=== PATIENT | female | born 1950 | race Caucasian/White ===

== ENCOUNTER 2017-08-07 18:51 | Emergency (ER) | payer BC ==
[2017-08-07 19:33] VITALS: BP 163/67; PULSE 75; O2SAT 98
[2017-08-07] MEDS ORDERED: Zofran 4 MG/2 ML VIAL IV ONE (20:15)
[2017-08-07] MEDS ORDERED: TORAdol 30 mg Injection IV ONE (20:15)
[2017-08-07] MEDS ORDERED: Pepcid 20 MG VIAL IV ONE ×2 (20:15→20:44)
[2017-08-07] MEDS ORDERED: Sodium Chloride 0.9% 1000 ML 1,000 ML IV SCH (20:15)
[2017-08-07 20:20] LABS: ALBUMIN 3.8 g/dL (3.5-5.0); ALKALINE PHOSPHATASE 117 U/L (38-126); ANION GAP 13.8 MEQ/L (5-15); BLOOD UREA NITROGEN 11 mg/dL (7-17); CHLORIDE 105 mmol/L (98-107); Calcium 9.5 mg/dL (8.4-10.2); Carbon Dioxide 27 mmol/L (22-30); Creatinine 1 0.54 mg/dL (0.52-1.04); Glucose 116 mg/dL (74-106); LIPASE 46 U/L (23-300); SGOT/AST 33 U/L (14-36); SGPT/ALT 42 U/L (0-35); SODIUM 142 mmol/L (137-145)
[2017-08-07 20:36] LABS: BASOPHIL % 0.3 % (0.0-0.4); Basophil (Absolute #) 0.04 (0-0.4); Eosinophil % 2.1 % (0.00-5.0); Eosinophil (Absolute #) 0.31 (0-0.5); Granulocyte Absolute (ANC) 10.19 (1.4-6.9); Granulocytes % 68.4 % (36.0-66.0); Hematocrit 37.9 % (35-47); Hemoglobin 12.6 gm/dl (12.0-16.0); Lymphocyte (Absolute #) 3.19 (1.0-4.6); Lymphocytes % 21.5 % (24.0-44.0); Mean Cell Volume 85.2 fl (78-100); Mean Corpuscular Hemoglobin 28.3 pg (26-32); Mean Corpuscular Hgb Concent. 33.2 g/dl (32-36); Mean Platelet Volume 9.7 fl (6-9.5); Monocyte (Absolute #) 1.14 (0.0-1.3); Monocytes % 7.7 % (0.0-12.0); Platelet Count 293 K/mm3 (150-450); Red Blood Count 4.45 M/mm3 (4.1-5.4); Red Cell Distribution Width 14.1 % (11.5-14.0); White Blood Count 14.9 K/mm3 (4.0-10.5)
--- NOTE | 2017-08-07 20:39 | ERPHSYRPT ---
- History of Present Illness Time Seen by Provider: 08/07/17 20:12 Historian: patient Exam Limitations: no limitations Patient Subjective Stated Complaint: pt arrives to ER with c/o LLQ abdominal pain began yesterday and has progressively become worse. Pt states pain shoots into left lower back. Also c/o nausea and belching. Pt denies dysuria, hematuria , vaginal d/c, diarrhea, constipation or any other sx. Hurts to walk and is tender to palpation. Triage Nursing Assessment: see above Physician History: C/o LLQ abdominal pain, nausea since yesterday, denies vomiting, diarrhea, bloody or black stool, no fever, chuills or urinary complaints. Timing/Duration: yesterday Activities at Onset: none Quality: sharpness Abdominal Pain Onset Location: LLQ Pain Radiation: no radiation Severity of Pain-Max: moderate Severity of Pain-Current: moderate Modifying Factors: Improves With: nothing Associated Symptoms: nausea Previous symptoms: no prior history Allergies/Adverse Reactions: No Known Drug Allergies Allergy (Verified 08/07/17 19:33) Home Medications: Dulaglutide [Trulicity] 0.75 mg SQ WEEKLY 01/20/16 [History] Metformin HCl 500 mg [Glucophage 500 MG] 500 mg PO BID 01/20/16 [History] Multivitamin [Daily Multivitamin] 1 ea PO DAILY 01/20/16 [History] Pravastatin Sodium 40 mg PO DAILY 01/20/16 [History] Ergocalciferol (Vitamin D2) [Vitamin D2] 50,000 units PO WEEKLY 08/07/17 [ History] - Review of Systems Constitutional: No Symptoms Abdominal/Gastrointestinal: Abdominal Pain, Nausea All Other Systems: Reviewed and Negative - Past Medical History Pertinent Past Medical History: Yes Neurological History: Peripheral Neuropathy ENT History: No Pertinent History Cardiac History: High Cholesterol Respiratory History: No Pertinent History Endocrine Medical History: Diabetes Type II Musculoskeletal History: No Pertinent History GI Medical History: No Pertinent History History: No Pertinent History Psycho-Social History: No Pertinent History Female Reproductive Disorders: No Pertinent History - Past Surgical History Past Surgical History: Yes Neuro Surgical History: No Pertinent History Cardiac: No Pertinent History Respiratory: No Pertinent History Gastrointestinal: Hernia Repair Genitourinary: No Pertinent History Musculoskeletal: Orthopedic Surgery Female Surgical History: Hysterectomy, Section Other Surgical History: L arm plate and screws - Social History Smoking Status: Never smoker Exposure to second hand smoke: No Drug Use: none Patient Lives Alone: No - Female History Hx Now: No - Nursing Vital Signs Nursing Vital Signs: Initial Vital Signs Temperature 98.4 F 08/07/17 19:24 Pulse Rate 75 08/07/17 19:24 Respiratory Rate 20 08/07/17 19:24 Blood Pressure 163/67 08/07/17 19:24 O2 Sat by Pulse Oximetry 98 08/07/17 19:24 Pain Scale Pain Intensity 8 - Physical Exam General Appearance: no apparent distress Eye Exam: eyes nml inspection Ears, Nose, Throat Exam: normal ENT inspection Neck Exam: normal inspection, non-tender Respiratory Exam: normal breath sounds, lungs clear, airway intact, No chest tenderness Cardiovascular Exam: regular rate/rhythm, normal heart sounds, normal peripheral pulses, No murmur Gastrointestinal/Abdomen Exam: soft, normal bowel sounds, tenderness (LLQ, moderate), No distention, No mass, No guarding, No pulsatile mass, No rebound Pelvic Exam: not done Back Exam: normal inspection, No CVA tenderness Extremity Exam: normal inspection Neurologic Exam: alert, oriented x 3, normal mood/affect Skin Exam: normal color, warm, dry, No rash Lymphatic Exam: No adenopathy SpO2 Interpretation: normal SpO2: 98 Oxygen Delivery: Room Air - Course Nursing assessment & vital signs reviewed: Yes - CT Exams Abdomen/Pelvis CT Interpretation: Tele-radiologist Report, Other (minimal diverticulitis) Ordered Tests: Active Orders 24 hr Category Date Time Status Clean Catch Urine Specimen STAT Care 08/07/17 19:57 Active IV Insertion STAT Care 08/07/17 19:57 Active IV Insertion STAT Care 08/07/17 20:15 Active ABDOMEN AND PELVIS W CONTRAST [CT] Stat Exams 08/07/17 20:16 Taken CBC W DIFF Stat Lab 08/07/17 19:57 Completed CMP Stat Lab 08/07/17 19:57 Completed CULTURE,URINE Stat Lab 08/07/17 21:30 Received LIPASE Stat Lab 08/07/17 19:57 Completed UA W/ MICROSCOPIC Stat Lab 08/07/17 21:30 Completed Medication Summary Generic Name Dose Route Start Last Admin Trade Name Freq PRN Reason Stop Dose Admin Sodium Chloride 1,000 mls @ 100 mls/hr 08/07/17 20:15 08/07/17 20:53 Sodium Chloride 0.9% 1000 Ml IV 09/06/17 20:14 100 mls/hr .Q10H FRANCESCO Administration Discontinued Medications Generic Name Dose Route Start Last Admin Trade Name Raymond PRN Reason Stop Dose Admin Famotidine 20 mg 08/07/17 20:15 08/07/17 20:52 Pepcid 20 Mg Vial IV 08/07/17 20:16 20 mg STAT ONE Administration Famotidine Confirm 08/07/17 20:44 Pepcid 20 Mg Vial Administered 08/07/17 20:45 Dose 20 mg IV .STK-MED ONE Ketorolac Tromethamine 30 mg 08/07/17 20:15 08/07/17 20:55 Toradol 30 Mg Injection IV 08/07/17 20:16 30 mg STAT ONE Administration Ketorolac Tromethamine Confirm 08/07/17 20:44 Toradol 30 Mg Injection Administered 08/07/17 20:45 Dose 30 mg .ROUTE .STK-MED ONE Ondansetron HCl 4 mg 08/07/17 20:15 08/07/17 20:55 Zofran 4 Mg/2 Ml Vial IV 08/07/17 20:16 4 mg STAT ONE Administration Ondansetron HCl Confirm 08/07/17 20:44 Zofran 4 Mg/2 Ml Vial Administered 08/07/17 20:45 Dose 4 mg .ROUTE .STK-MED ONE Lab/Rad Data: Laboratory Result Diagrams 08/07/17 19:57 08/07/17 19:57 Laboratory Results 08/07/17 08/07/17 08/07/17 Range/Units 21:30 19:57 19:57 WBC 14.9 H (4.0-10.5) K/mm3 RBC 4.45 (4.1-5.4) M/mm3 Hgb 12.6 (12.0-16.0) gm/dl Hct 37.9 (35-47) % MCV 85.2 (78-100) fl MCH 28.3 (26-32) pg MCHC 33.2 (32-36) g/dl RDW 14.1 H (11.5-14.0) % Plt Count 293 (150-450) K/mm3 MPV 9.7 H (6-9.5) fl Gran % 68.4 H (36.0-66.0) % Eos # (Auto) 0.31 (0-0.5) Absolute Lymphs (auto) 3.19 (1.0-4.6) Absolute Monos (auto) 1.14 (0.0-1.3) Lymphocytes % 21.5 L (24.0-44.0) % Monocytes % 7.7 (0.0-12.0) % Eosinophils % 2.1 (0.00-5.0) % Basophils % 0.3 (0.0-0.4) % Absolute Granulocytes 10.19 H (1.4-6.9) Basophils # 0.04 (0-0.4) Sodium 142 (137-145) mmol/L Potassium 4.0 (3.5-5.1) mmol/L Chloride 105 (98-107) mmol/L Carbon Dioxide 27 (22-30) mmol/L Anion Gap 13.8 (5-15) MEQ/L BUN 11 (7-17) mg/dL Creatinine 0.54 (0.52-1.04) mg/dL Estimated GFR > 60.0 ML/MIN Glucose 116 H (74-106) mg/dL Calcium 9.5 (8.4-10.2) mg/dL Total Bilirubin 0.40 (0.2-1.3) mg/dL AST 33 (14-36) U/L ALT 42 H (0-35) U/L Alkaline Phosphatase 117 (38-126) U/L Serum Total Protein 7.0 (6.3-8.2) g/dL Albumin 3.8 (3.5-5.0) g/dL Lipase 46 (23-300) U/L Ur Collection Type CCMS Urine Color YELLOW (YELLOW) Urine Appearance CLEAR (CLEAR) Urine pH 6.0 (5-6) Ur Specific [place] 1.015 (1.005-1.025) Urine Protein NEGATIVE (Negative) Urine Ketones NEGATIVE (NEGATIVE) Urine Blood NEGATIVE (0-5) Kevin/ul Urine Nitrite NEGATIVE (NEGATIVE) Urine Bilirubin NEGATIVE (NEGATIVE) Urine Urobilinogen NORMAL (0-1) mg/dL Ur Leukocyte Esterase 1+ (NEGATIVE) Urine Microscopic RBC 0-2 (0-2) /HPF Urine Microscopic WBC 10-15 (0-5) /HPF Ur Epithelial Cells FEW (FEW) /HPF Urine Bacteria RARE (NEGATIVE) /HPF Urine Mucus SLIGHT (NEGATIVE) /HPF Urine Culture Reflexed YES (NO) Urine Glucose 50 (NEGATIVE) mg/dL Specimen Received [id number] - Progress Progress: improved Progress Note: 08/07/17 23:52 Pt has been stable, afebrile, no severe pain or distress. I discussed our results with her, and instructed to rest x 2-3 days, continue liquid diet, follow up with her PCP in 2-3 days, return if severe pain, vomiting, fever> 102 F! Counseled pt/family regarding: lab results, diagnosis, need for follow-up, rad results - Departure Time of Disposition: 23:52 Departure Disposition: Home Clinical Impression: Diverticulitis large intestine Qualifiers: Diverticulitis bleeding: without bleeding Diverticulitis complication: without perforation or abscess Qualified Code(s): K57.32 - Diverticulitis of large intestine without perforation or abscess without bleeding Condition: Stable Critical Care Time: No Referrals: CHERIE HUMPHRIES MD [Primary Care Provider] - Instructions: Diverticulitis (DC) Additional Instructions: Rest x 2-3 days, continue liquid diet, follow up with your physician in 2-3 days , return if severe pain, vomiting, fever> 102 F!
[2017-08-07] MEDS ORDERED: Sodium Chloride 0.9% 1000 ML 1,000 ML ONE (20:44)
[2017-08-07] MEDS ORDERED: TORAdol 30 mg Injection ONE (20:44)
[2017-08-07] MEDS ORDERED: Zofran 4 MG/2 ML VIAL ONE (20:44)
[2017-08-07 21:52] LABS: Appearance CLEAR (CLEAR); Bacteria RARE /HPF (NEGATIVE); Bilirubin NEGATIVE (NEGATIVE); Blood NEGATIVE Ery/ul (0-5); Epithelial Cells FEW /HPF (FEW); Glucose 50 mg/dL (NEGATIVE); Ketones NEGATIVE (NEGATIVE); Leukocyte Esterase 1+ (NEGATIVE); Mucus SLIGHT /HPF (NEGATIVE); Nitrite NEGATIVE (NEGATIVE); Protein,Urine Dip NEGATIVE (Negative); RBC 0-2 /HPF (0-2); Specific Gravity 1.015 (1.005-1.025); Urobilinogen NORMAL mg/dL (0-1)
[2017-08-07] MEDS ORDERED: Flagyl 500 MG PO ONE (23:51)
[2017-08-07] MEDS ORDERED: Levofloxacin 250MG Tablet PO ONE (23:51)
[2017-08-07] MEDS ORDERED: Levofloxacin 250MG Tablet ONE (23:58)
[2017-08-07] MEDS ORDERED: Flagyl 500 MG ONE (23:58)
--- NOTE | 2017-08-08 08:37 | XRAY ---
Indication: Left lower quadrant pain, nausea, and and elevated WBC. Multiple contiguous axial images obtained through the abdomen and pelvis using 80 cc Isovue 370 contrast only. Comparison: None Lung bases demonstrates minimal right basilar atelectasis/scarring and right posterior gutter calcified granuloma. No infiltrate or effusion. Heart is not enlarged. Noncontrasted stomach and bowel loops appear nonobstructed. Normal appendix. Mild scattered colonic diverticulosis with short segment of minimal pericolonic stranding in the distal descending colon favoring diverticulitis. No free fluid/air. Diffuse fatty liver, 8 mm gallstone, tiny calcified splenic granulomas, and previous hysterectomy. Remaining liver, gallbladder, pancreas, spleen, adrenal glands, kidneys, ureters, bladder, and aorta appear unremarkable. No pathologic retroperitoneal lymphadenopathy. Osseous structures intact with mild degenerative changes throughout the spine. Intact infraumbilical ventral mesh graft. Impression: 1. Mild colonic diverticulosis. Minimal diverticulitis in the descending colon without complications. 2. Incidental fatty liver, tiny gallstone, and evidence for old granulomatous disease. CT DI 28.13
== END 2017-08-08 00:29 | disposition home or self-care (01) ==
LOC: ED 18:51
DX: K57.32 Diverticulitis of large intestine without perforation or abscess without bleeding (principal); R11.0 Nausea; Z79.899 Other long term (current) drug therapy; E11.9 Type 2 diabetes mellitus without complications; Z79.84 Long term (current) use of oral hypoglycemic drugs
CPT/HCPCS: 36000; 36415; 74177; 80053; 81000; 83690; 85025; 87086; 96360; 96374; 96375; 99284; J1885; J2405; A9270-GY

== ENCOUNTER 2019-08-22 10:39 | Day surgery (SDC) | payer BC, OTHER ==
--- NOTE | 2019-08-15 08:44 | HP ---
DATE OF SURGERY: 08/22/2019 HISTORY OF PRESENT ILLNESS: The patient presents to the office with complaints of stomach ache, nausea and some diarrhea. It started about May. She had one day that was very severe she felt like she was going to . Pain in the abdomen centrally radiates to the back. She states milk and cabbage have been triggers for this pain. She had a CT scan that did show an 8 mm calcified gallstone, fatty liver and some diverticulosis. PAST MEDICAL HISTORY: Hyperlipidemia. Diabetes. Diverticulosis. Sleep apnea. PAST SURGICAL HISTORY: section x3. Ventral hernia repair x2. Left arm surgery. Tonsillectomy. ALLERGIES: NKDA. ADHESIVE. MEDICATIONS: Metformin. Pravastatin. Trulicity. Naproxen. Melatonin. CBD oil. FAMILY HISTORY: Diabetes, heart arrhythmia. SOCIAL HISTORY: Negative. REVIEW OF SYSTEMS: CONSTITUTIONAL: No fever or chills. CHEST: Denies shortness of breath. CVS: Denies chest pain. ABDOMEN: Reports epigastrium pain, upper abdominal pain, nausea and vomiting. Denies constipation or rectal bleeding. : Denies dysuria or hematuria. PHYSICAL EXAMINATION: GENERAL: No acute distress. CHEST: Nonlabored. No shortness of breath. CVS: Regular rate and rhythm. ABDOMEN: Soft, tender to palpation in right upper quadrant and epigastrium. EXTREMITIES: No edema. NEUROLOGIC: Alert. PSYCHIATRIC: Appropriate. ASSESSMENT: Symptomatic cholelithiasis. PLAN: Laparoscopic cholecystectomy possible open with Dr. Ned Haynes. As dictated by Cristel Thompson NP.
[~2019-08-22 10:39] MED LIST: Lactated Ringers 1,000 ML IV ONE; Sensorcaine 0.25% 10 ML ONE
[2019-08-22] MEDS ORDERED: Lactated Ringers 1,000 ML IV ONE (11:05)
[2019-08-22] MEDS ORDERED: MEFOXIN 2 GM PREMIX** 2 GM/50 ML ML IV ONE (11:06)
[2019-08-22] MEDS ORDERED: Lactated Ringers 1,000 ML IV SCH (11:30)
[2019-08-22] MEDS ORDERED: MEFOXIN 2 GM PREMIX** 2 GM/50 ML ML IV SCH (12:00)
[2019-08-22] MEDS ORDERED: Xylocaine-Mpf 2% 5 Ml Vial ONE (12:06)
[2019-08-22] MEDS ORDERED: SUBLIMAZE 250 MCG/5 ML ONE (12:06)
[2019-08-22] MEDS ORDERED: Zemuron 100 MG/10 ML ONE (12:06)
[2019-08-22] MEDS ORDERED: Versed 2 MG/2 ML Injection ONE (12:06)
[2019-08-22] MEDS ORDERED: Quelicin Fliptop 200 MG/10 ML ONE (14:47)
[2019-08-22] MEDS ORDERED: BRIDION 200MG/2ML IV ONE (15:27)
[2019-08-22 16:34] VITALS: O2SAT 97
[2019-08-22 17:37] VITALS: BP 130/68; PULSE 68
--- NOTE | 2019-08-23 07:57 | OP ---
SURGERY DATE/TIME: 08/22/2019 1445 PREOPERATIVE DIAGNOSIS: Symptomatic cholelithiasis. POSTOPERATIVE DIAGNOSES: 1) Symptomatic cholelithiasis. 2) Cholesterolosis of the gallbladder. PROCEDURE: Laparoscopic cholecystectomy. SURGEON: Dr. Haynes. ANESTHESIA: General endotracheal tube. COMPLICATIONS: None. CONDITION: Stable. INDICATIONS: A patient with stones. DESCRIPTION OF PROCEDURE AND FINDINGS: Taken to surgery. General anesthetic, routine prep and drape. Left upper quadrant Veress. Insufflating pressure 14. Four - 5's, one just above and to right of the umbilicus. There were adhesions on the umbilicus down in a previous incision which was left alone. The gallbladder was satisfactory. It was very thin walled and there was visible cholesterolosis. With care and patience the gallbladder elevated. The infundibulum and cystic duct just slightly broad at 3 mm, taken with three clips medial, one lateral. They were totally crossed and totally sealed. Clip cut in between. Cystic artery triply clipped. Gallbladder rolled out of gallbladder fossa. The gallbladder delivered through the middle upper port with slight widening. Hole closure device used 0 Vicryl. Field totally dry. CO2 exsufflated. Skin closed with 4-0 Vicryl and Steri-Strips. The patient tolerated the procedure satisfactorily.
== END 2019-08-22 17:41 | disposition home or self-care (01) ==
LOC: SDC 10:39
PROVIDERS: ATTEND Surgery
DX: K80.20 Calculus of gallbladder without cholecystitis without obstruction (principal); E11.9 Type 2 diabetes mellitus without complications; E78.5 Hyperlipidemia, unspecified; Z79.899 Other long term (current) drug therapy
CPT/HCPCS: 88304; J0330; J0694; J2250; J3010

== ENCOUNTER 2020-04-14 19:45 | Emergency (ER) | payer OTHER ==
[2020-04-14] MEDS ORDERED: Adacel Vial IM ONE ×2 (20:06→20:35)
[2020-04-14] MEDS ORDERED: MORPHINE SULFATE 4 MG INJ ONE (20:44)
[2020-04-14] MEDS ORDERED: MORPHINE SULFATE 10 MG/ML IM ONE (20:44)
[2020-04-14] MEDS ORDERED: MORPHINE SULFATE 4 MG INJ IM ONE (20:47)
--- NOTE | 2020-04-14 20:59 | ERPHSYRPT ---
- History of Present Illness Time Seen by Provider: 04/14/20 19:55 Source: patient Exam Limitations: no limitations Patient Subjective Stated Complaint: pt states she missed the last step on her step ladder and fell on her buttocks and hit her head on the cabinet. states she has a laceration on the rt side of her head. Triage Nursing Assessment: pt alert and oriented, answers questions approp. pt ambulatory with steady gait noted. respirations nonlabored with lungs cta. pupils equal and reactive. bilat upper and lower ext strength equal and wnl. hematoma to rt head with laceration approx 4.8x0.2 cm. bleeding controlled at this time. Physician History: Patient is a 70-year-old female presents to our ED for evaluation and treatment of a laceration to her scalp. Patient was at home. Patient was on a stepstool. She was stepping downward and missed the last step. Patient fell onto her buttock. Patient then fell backward and hit her head on a cabinet. No loss of consciousness. No neck pain. Cervical spine cleared clinically. Injury occurred just prior to arrival. Pain described as an ache that is well localized. No radiation. No associated chest pain or shortness of breath. No nausea vomiting or diaphoresis. No other injuries reported. Patient voices no other complaints or concerns at this time. Occurred: just prior to arrival Severity: moderate Head Injury Location: parietal (Right parietal scalp laceration measuring 5 cm x 0.2 cm) Method of Injury: fell Loss of Consciousness: no loss of consciousness Associated Symptoms: denies symptoms, No nausea, No vomiting, No abdominal pain, No shortness of breath, No heartburn, No diaphoresis, No cough, No chest pain, No fever, No headaches, No loss of appetite, No malaise, No rash, No syncope, No seizure, No weakness Allergies/Adverse Reactions: adhesive Adverse Reaction (Verified 04/14/20 20:18) Home Medications: Dulaglutide [Trulicity] 0.75 mg SQ WEEKLY 01/20/16 [History] Metformin HCl 500 mg [Glucophage 500 MG] 500 mg PO BID 01/20/16 [History] Multivitamin [Daily Multivitamin] 1 ea PO DAILY 01/20/16 [History] Pravastatin Sodium 40 mg PO DAILY 01/20/16 [History] Ergocalciferol (Vitamin D2) [Vitamin D2] 1.25 units PO DAILY 08/07/17 [History] Naproxen 500 mg [Naprosyn 500 MG] 500 mg PO BIDPRN PRN 08/14/19 [History] Vit A/Vit C/Vit E/Zinc/Copper [Preservision Areds Softgel] 1 each PO BID 08/14/19 [History] Cyclosporine [Restasis] 1 each OP BID 04/14/20 [History] Hx Tetanus, Diphtheria Vaccination/Date Given: No (unknown) Hx Influenza Vaccination/Date Given: Yes Hx Pneumococcal Vaccination/Date Given: No Immunizations Up to Date: Yes Travel Risk - International Travel Have you traveled outside of the country in past 3 weeks: No - Coronavirus Screening Are you exhibiting any of the following symptoms?: No Close contact with a COVID-19 positive Pt in past 14-21 Days: No - Review of Systems Constitutional: No Symptoms, No Fever, No Chills Eyes: No Symptoms Ears, Nose, & Throat: No Symptoms Respiratory: No Symptoms, No Cough, No Dyspnea Cardiac: No Symptoms, No Chest Pain, No Edema, No Syncope Abdominal/Gastrointestinal: No Symptoms, No Abdominal Pain, No Nausea, No Vomiting, No Diarrhea Genitourinary Symptoms: No Symptoms, No Dysuria Musculoskeletal: No Symptoms, No Back Pain, No Neck Pain Skin: No Symptoms, No Rash Neurological: No Symptoms, No Dizziness, No Focal Weakness, No Sensory Changes Psychological: No Symptoms Endocrine: No Symptoms Hematologic/Lymphatic: No Symptoms Immunological/Allergic: No Symptoms All Other Systems: Reviewed and Negative - Past Medical History Pertinent Past Medical History: Yes Neurological History: No Pertinent History ENT History: No Pertinent History Cardiac History: High Cholesterol Respiratory History: Sleep Apnea Endocrine Medical History: Diabetes Type II Musculoskeletal History: Fractures GI Medical History: No Pertinent History History: No Pertinent History Psycho-Social History: No Pertinent History Female Reproductive Disorders: No Pertinent History Other Medical History: FX LEFT HUMERUS WITH ORIF 2002. HYSTERECTOMY, CHOLECYSTECTOMY, ABDOMINAL HERNIA REPAIR. DRY EYES AND AMD - SEES DR HANSON - Past Surgical History Past Surgical History: Yes Neuro Surgical History: No Pertinent History Cardiac: No Pertinent History Respiratory: No Pertinent History Gastrointestinal: Hernia Repair Genitourinary: No Pertinent History Musculoskeletal: Orthopedic Surgery Female Surgical History: Hysterectomy, Section Other Surgical History: L arm plate and screws - Social History Smoking Status: Never smoker Exposure to second hand smoke: No Drug Use: none Patient Lives Alone: Yes - Female History Hx Last Menstrual Period: post - Nursing Vital Signs Nursing Vital Signs: Initial Vital Signs Temperature 98.7 F 04/14/20 19:55 Pulse Rate 80 04/14/20 19:55 Respiratory Rate 18 04/14/20 19:55 Blood Pressure 150/86 04/14/20 19:55 O2 Sat by Pulse Oximetry 96 04/14/20 19:55 Pain Scale Pain Intensity 5 - Tahmina Coma Score Best Eye Response (Gratis): (4) open spontaneously Best Verbal Response (Tahmina): (5) oriented Best Motor Response (Gratis): (6) obeys commands Gratis Total: 15 - Physical Exam General Appearance: no apparent distress, alert Head Injury: lacerations (5 cm parietal scalp laceration.), No active bleeding, No Strauss's Sign Eye Exam: bilateral eye: normal inspection, PERRL, EOMI ENT Exam: airway nml, No dental injury, No clear fluid (ears), No clear fluid (nose), No midface instability, No decreased hearing, No hemotympanum, No hearing grossly normal, No TM obscured by wax, No clotted nasal blood, No malocclusion, No oral injury Neck Exam: supple, trachea midline, full range of motion, normal alignment, normal inspection, No focal neuro deficit, No limited range of motion, No muscle spasm, No paraspinous muscle tender, No pain on movement of neck, No stiff neck, No tenderness, No tender lateral, No mid-line tenderness Cardiovascular/Respiratory Exam: chest non-tender, normal breath sounds, regular rate/rhythm Gastrointestinal/Abdominal Exam: soft, non tender, no distention Pelvic Exam: not done Rectal Exam: deferred Back Exam: normal inspection, No vertebral tenderness Extremity Exam: non-tender, normal range of motion, normal inspection Mental Status Exam: alert, oriented x 3, cooperative [employer] consultant Exam: normal hearing, normal speech, PERRL, No abnormal eye position, No abnormal gag reflex, No abnormal pupil position, No abnormal speech, No facial asymmetry, No facial droop, No facial paresthesias, No facial weakness, No gaze palsy, No hearing deficit (R), No hearing deficit (L), No tongue deviation to R, No tongue deviation to L, No tongue midline Coordination/Gait Exam: normal finger to nose, normal gait, normal cerebellar function Motor/Sensory Exam: no motor deficit, no sensory deficit, CN II-XII intact Skin Exam: normal color, warm, dry, No rash Lymphatic Exam: No adenopathy SpO2 Interpretation: normal SpO2: 96 O2 Delivery: Room Air Procedures - Laceration/Wound Repair Head Wound Location: Right (Right parietal) Wound Length (cm): 5 Wound's Depth, Shape: linear Wound Explored: clean Irrigated: Yes (See RN note for irrigation details.) Wound Debrided: No debridement indicated. Wound Repaired With: [place] (8 maryellen) Layer Closure?: No Sterile Dressing Applied?: Yes Splint Applied?: No Sling Applied?: No - Course Nursing assessment & vital signs reviewed: Yes - CT Exams Head CT Interpretation: Tele-radiologist Report (Right parietal scalp laceration otherwise negative head CT.) Ordered Tests: Active Orders 24 hr Category Date Time Status HEAD WITHOUT CONTRAST [CT] Stat Exams 04/14/20 20:06 Taken LUMBAR LIMITED (2 OR 3 VIEWS) Stat Exams 04/14/20 20:58 Taken PELVIS (1 OR 2 VIEWS) Stat Exams 04/14/20 20:59 Taken Medication Summary Discontinued Medications Generic Name Dose Route Start Last Admin Trade Name Balajiq PRN Reason Stop Dose Admin Acetaminophen 975 mg 04/14/20 22:11 04/14/20 22:16 Tylenol 325 Mg PO 04/14/20 22:12 Not Given STAT ONE Acetaminophen Confirm 04/14/20 22:14 Tylenol Extra Strength 500 Mg Administered 04/14/20 22:15 Dose 1,000 mg .ROUTE .STK-MED ONE Acetaminophen 1,000 mg 04/14/20 22:16 04/14/20 22:17 Tylenol Extra Strength 500 Mg PO 04/14/20 22:17 1,000 mg STAT STA Administration Diphtheria/Tetanus/Acell Pertussis 0.5 ml 04/14/20 20:06 04/14/20 20:47 Adacel Vial IM 04/14/20 20:07 0.5 ml .ONCE ONE Administration Diphtheria/Tetanus/Acell Pertussis Confirm 04/14/20 20:35 Adacel Vial Administered 04/14/20 20:36 Dose 0.5 ml IM .STK-MED ONE Morphine Sulfate 4 mg 04/14/20 20:44 04/14/20 20:48 Morphine Sulfate 10 Mg/Ml IM 04/14/20 20:45 Not Given STAT ONE Morphine Sulfate Confirm 04/14/20 20:44 Morphine Sulfate 4 Mg Inj Administered 04/14/20 20:45 Dose 4 mg .ROUTE .STK-MED ONE Morphine Sulfate 4 mg 04/14/20 20:47 04/14/20 20:58 Morphine Sulfate 4 Mg Inj IM 04/14/20 20:48 4 mg STAT ONE Administration - Progress Progress: improved Progress Note: Patient reassessed. Pain improved. CT head negative for acute intracranial pathology. Repeat neuro exam within normal limits. [place] applied. Work note provided. X-ray of lumbar spine and pelvis negative for fracture dislocation. Patient ambulated in our ED. Patient states she feels well and requesting discharge. Patient agrees to follow-up with her primary care doctor within 48 hours for reevaluation. 04/14/20 22:23 Counseled pt/family regarding: diagnosis, need for follow-up, rad results - Departure Departure Disposition: Home Clinical Impression: Fall, Scalp laceration, Lumbosacral strain Condition: Stable Critical Care Time: No Referrals: CHERIE HUMPHRIES MD [Primary Care Provider] - Additional Instructions: Discharge/Care Plan LIA WALL was seen on 04/14/20 in the Emergency Room. The patient was counseled regarding Diagnosis,Lab results, Imaging studies, need for follow up and when to return to the Emergency Room. Prescriptions given: Discharge Note I have spoken with the patient and/or caregivers. I have explained the patient's condition, diagnosis and treatment plan based on the information available to me at this time. I have answered the patient's and/or caregiver's questions and addressed any concerns. The patient and/or caregivers have as good understanding of the patient's diagnosis, condition and treatment plan as can be expected at this point. The vital signs have been stable. The patient's condition is stable and appropriate for discharge from the emergency department. The patient will pursue further outpatient evaluation with the primary care physician or other designated or consulting physician as outlined in the discharge instructions. The patient and/or caregivers are agreeable to this plan of care and follow-up instructions have been explained in detail. The patient and/or caregivers have received these instruction. The patient/and or caregivers are aware that any significant change in condition or worsening of symptoms should prompt an immediate return to this or the closest emergency department or call 911. Forms: Work/School Release Form
[2020-04-14 21:30] VITALS: O2SAT 96
[2020-04-14 22:07] VITALS: BP 133/58; PULSE 73
[2020-04-14] MEDS ORDERED: TYLENOL 325 MG PO ONE (22:11)
[2020-04-14] MEDS ORDERED: TYLENOL EXTRA STRENGTH 500 MG ONE (22:14)
[2020-04-14] MEDS ORDERED: TYLENOL EXTRA STRENGTH 500 MG PO STA (22:16)
--- NOTE | 2020-04-15 08:44 | XRAY ---
Indication: Right scalp laceration following fall. Multiple contiguous axial images obtained through the head without contrast. Comparison: None Normal appearing brain parenchyma, ventricles, and bony calvarium. Small right posterior parietal scalp hematoma/laceration. Visualized paranasal sinuses and mastoid air cells are clear. Impression: Right parietal scalp hematoma/laceration. Remaining CT head without contrast exam is normal.
--- NOTE | 2020-04-15 08:56 | XRAY ---
Indication: Pain following fall. Comparison: None 3 view lumbar spine demonstrates 5 lumbar segments with mild osteopenia, minimal levoscoliosis centered at thoracolumbar junction, mild multilevel thoracolumbar degenerative spondylosis, right lung base calcified granuloma, cholecystectomy clips, and pelvic ventral hernia mesh graft. No other bony, articular, or soft tissue abnormalities. Impression: Nonacute lumbar spine with chronic features.
--- NOTE | 2020-04-15 08:58 | XRAY ---
Indication: Pain following fall. Comparison: None Single AP pelvis demonstrates mild osteopenia, mild degenerative changes both hips, lower lumbar degenerative spondylosis reported separately, mild pubis symphysis degenerative changes, and overlying ventral hernia mesh graft. No other bony, articular, or soft tissue abnormalities. Impression: Nonacute pelvis with chronic features.
== END 2020-04-14 22:50 | disposition home or self-care (01) ==
LOC: ED 19:45
DX: S01.01XA Laceration without foreign body of scalp, initial encounter (principal); S39.012A Strain of muscle, fascia and tendon of lower back, initial encounter; W11.XXXA Fall on and from ladder, initial encounter; E78.5 Hyperlipidemia, unspecified; E11.9 Type 2 diabetes mellitus without complications; Z79.899 Other long term (current) drug therapy
CPT/HCPCS: 12002; 70450; 72100; 72170; 90471; 90715; 96372; 99284; J2270; A9270-GY

== ENCOUNTER 2024-04-03 06:09 | Day surgery (SDC) | payer MEDICARE, OTHER ==
[2024-04-03] MEDS ORDERED: Transderm Scop 1.5MG Patch ONE (06:12)
[2024-04-03] MEDS ORDERED: Decadron 4 MG ONE (06:12)
[2024-04-03] MEDS ORDERED: TRANEXAMIC 1,000 MG/100ML-NACL 1,000 MG/100 ML PIGGYBACK IV ONE (06:12)
[2024-04-03] MEDS ORDERED: NEURONTIN ONE (06:12)
[2024-04-03] MEDS ORDERED: TYLENOL EXTRA STRENGTH 500 MG ONE (06:12)
[2024-04-03] MEDS ORDERED: Lactated Ringers 1,000 ML IV ONE ×2 (06:13→10:59)
[2024-04-03] MEDS ORDERED: celeBREX 100 MG ONE (06:13)
[2024-04-03] MEDS: TYLENOL EXTRA STRENGTH 500 MG PO ONE (06:17)
[2024-04-03] MEDS: NEURONTIN PO ONE (06:18)
[2024-04-03] MEDS: Decadron 4 MG PO ONE (06:18)
[2024-04-03] MEDS: Transderm Scop 1.5MG Patch TOP PRN (06:18)
[2024-04-03] MEDS: Lactated Ringers 1,000 ML IV SCH (06:19)
[2024-04-03] MEDS: celeBREX 100 MG PO ONE (06:19)
[2024-04-03] MEDS: TRANEXAMIC 1,000 MG/100ML-NACL 1,000 MG/100 ML PIGGYBACK IV ONE (06:20)
[2024-04-03] MEDS ORDERED: CEFAZOLIN 2 GM/100 ML NaCl 2 GM/100 ML IVPB IV ONE (06:51)
[2024-04-03] MEDS: CEFAZOLIN 2 GM/100 ML NaCl 2 GM/100 ML IVPB IV SCH ×2 (06:52→14:37)
[2024-04-03] MEDS ORDERED: ROCURONIUM BROMIDE IV ONE ×2 (07:37→09:25)
[2024-04-03] MEDS ORDERED: Marcaine 0.5%/Epinephrine 10 ML ONE (07:37)
[2024-04-03] MEDS ORDERED: DEXMEDETOMIDINE 80 MCG/20ML-NS IV ONE (07:37)
[2024-04-03] MEDS ORDERED: SUBLIMAZE 100 MCG/2 ML ONE (07:37)
[2024-04-03] MEDS ORDERED: propofoL IV ONE (07:37)
[2024-04-03] MEDS ORDERED: Zofran 4 MG/2 ML VIAL ONE (07:37)
[2024-04-03] MEDS ORDERED: Versed 2 MG/2 ML Injection ONE (07:37)
[2024-04-03] MEDS ORDERED: VANCOCIN INJECTION IV ONE (07:38)
[2024-04-03] MEDS ORDERED: Xylocaine-Mpf 2% 5 Ml Vial ONE (07:51)
[2024-04-03] MEDS ORDERED: PHENYLEPHRINE HCL ONE (08:44)
[2024-04-03] MEDS ORDERED: BRIDION 200MG/2ML IV ONE (10:21)
[2024-04-03] MEDS ORDERED: TORAdol 30 mg Injection ONE (10:42)
--- NOTE | 2024-04-03 12:04 | XRAY ---
Indication: Postop exam. Comparison: October 26, 2023 2 frontal views right shoulder obtained in internal and external rotation demonstrates new total shoulder arthroplasty with intact prosthesis. Post surgical soft tissue swelling and soft tissue emphysema. New small right lung base effusion/atelectasis. Stable osteopenia, AC degenerative arthropathy, multilevel degenerative spondylosis, and right lung base calcified granuloma.
[2024-04-03] MEDS ORDERED: Sodium Chloride 0.9% 1000 ML 1,000 ML ONE (12:43)
[2024-04-03] MEDS ORDERED: NORCO 5/325 MG ONE (12:48)
[2024-04-03] MEDS: NORCO 5/325 MG PO PRN (12:54)
[2024-04-03] MEDS ORDERED: Zofran 4 MG/2 ML VIAL IV PRN (14:00)
[2024-04-03] MEDS ORDERED: TYLENOL EXTRA STRENGTH 500 MG PO PRN (14:00)
[2024-04-03] MEDS ORDERED: Narcan 0.4 MG/ML IV PRN (14:00)
[2024-04-03] MEDS ORDERED: CHOLESTYRAMINE MC SCH (14:30)
[2024-04-03] MEDS ORDERED: NON-FORMULARY ITEM (Benzonatate [Benzonatate] 200 MG Capsule) PO SCH (14:30)
[2024-04-03] MEDS ORDERED: ANTIVERT 25 MG PO PRN (14:30)
[2024-04-03] MEDS ORDERED: GABAPENTIN 300 MG PO SCH (14:30)
[2024-04-03] MEDS ORDERED: NON-FORMULARY ITEM (Tirzepatide [Mounjaro] 5 MG/0.5 ML Pen.Injctr) SQ SCH (14:30)
[2024-04-03] MEDS ORDERED: Tessalon Perles 100 MG PO PRN (16:42)
[2024-04-03] MEDS ORDERED: QUESTRAN Light 4 GM Packet PO PRN (16:46)
[2024-04-03] MEDS: Glucophage 500 MG PO SCH (16:50)
[2024-04-03] MEDS ORDERED: MEDICATION INTERVENTION MC SCH (17:15)
[2024-04-03] MEDS ORDERED: NON-FORMULARY ITEM (Vit A/Vit C/Vit E/Zinc/Copper [Preservision Areds Softgel] 1 EACH Caps PO SCH (22:00)
[2024-04-03] MEDS: Ocuvite Tablet PO SCH (22:05)
[2024-04-03] MEDS: NEURONTIN PO SCH (22:05)
[2024-04-03] MEDS: Hydromorphone 1 mg/ml Injection IV PRN (22:06)
[2024-04-03] MEDS: Sodium Chloride 0.9% 1000 ML 1,000 ML IV SCH (22:07)
[2024-04-04 04:45] VITALS: TEMP 97.6
[2024-04-04 05:00] LABS: Hematocrit 32.7 % (34.1-44.9); Hemoglobin 10.5 g/dL (11.2-15.7); Mean Cell Volume 86.5 fL (79.4-94.8); Mean Corpuscular Hemoglobin 27.8 pg (25.6-32.2); Mean Corpuscular Hgb Concent. 32.1 g/dL (32.2-35.5); Platelet Count 217 x10^3/uL (182-369); Red Blood Count 3.78 x10^6/uL (3.93-5.22); Red Cell Distribution Width 13.7 % (11.7-14.4)
[2024-04-04 08:03] VITALS: BP 132/60; PULSE 77; RESP 16; O2SAT 99
[2024-04-04] MEDS: ZOCOR 20MG PO SCH (09:19)
[2024-04-04] MEDS: THERAGRAN MULTIVITAMIN PO SCH (09:19)
[2024-04-04] MEDS: ECOTRIN 81 MG PO SCH (09:19)
--- NOTE | 2024-04-04 09:20 | OP ---
SURGERY DATE/TIME: 04/03/2024 [id number] PREOPERATIVE DIAGNOSIS: Right rotator cuff tear arthropathy. POSTOPERATIVE DIAGNOSIS: Right rotator cuff tear arthropathy. PROCEDURES: Reverse right total shoulder replacement arthroplasty utilizing a [employer] comprehensive system with a 25 mm baseplate; a 36 mm glenosphere; central screw of 25 mm; peripheral screws of 30, 30, 20 and 15; a 16 mm mini stem Press-Fit with a 40 tray and a 36 polyethylene. SURGEON: Jamar Thompson II, DO. ANESTHESIA: General, with a block for postop pain control. DESCRIPTION OF PROCEDURE AND FINDINGS: The patient was identified, and informed consent was obtained. The patient was taken to the operative suite where the block was administered, followed by the general anesthetic. Once an appropriate level of anesthesia had been obtained, the patient was then appropriately positioned on the shoulder table in the beach chair position. Care was taken to pad all bony prominences. Rolls were placed under the knees and the heels were touching egg crates. At this point, the right shoulder and upper extremity were prepped and draped in the usual sterile fashion. A standard time-out was taken. At this point, standard incision was carried out from about the level of the clavicle in line with the coracoid traversing this toward the axillary fold. Skin was incised. Dissection was carried out through the subcutaneous tissue. The deltopectoral interval was identified. Cephalic vein was identified. It was retracted laterally with the deltoid. The clavipectoral fascia was then incised. The 3 sisters were identified and cauterized inferiorly. At this point, the patient was noted to have no remaining supraspinatus or infraspinatus or biceps tendon. There were only a very minimal few fibers of the inferior portion of the subscapularis which were noted, less than 0.5 cm in width, closer to 2 or 3 mm; released. At this point, the shoulder was dislocated. At this point, then, a aeroplane pilot hole was created in the humeral head just posterior to the bicipital groove and hand reaming was accomplished to a size 16. The cutting guide was then applied and held with pins with 30 degrees of retroversion of the humeral head. At this point, then, the proximal wafer of humeral head was removed. Broaching was accomplished, again with 30 degrees of retroversion to a size 16 and at this point, then, the broach was left in place and our attention was now turned to the glenoid. Utilizing a Fukuda retractor posteriorly and a pitchfork-type retractor anteriorly, the glenoid was easily isolated. The guidepin was placed at a 10-degree cephalic angle. At this point, then, milling was accomplished with the standard baseplate milling device. The trial guide showed that we had an adequate resection as the guide sat flat. Any osteophytes were now removed from the edge of the glenoid. The baseplate was then fully seated and impacted into position. The screws were drilled and inserted fully. The central screw was inserted first, followed by the 4 peripheral screws. Following this, the glenosphere with maximal offset was inserted and impacted into position. Our attention was then turned back to the humeral side where the broach was removed and the permanent stem was impacted into position again with 30 degrees of retroversion. The trial reduction showed that the 40 mm tray with the 36 poly was the appropriate size. Trial was removed and the humeral bearing tray and poly were then impacted onto the trunnion. The shoulder was then reduced, placed through a range of motion. Again, the shoulder was re-irrigated with the pulse weaving loom operator, as had been done numerous times throughout the case with antibiotic solution. The wound was then closed with #1 Vicryl, 2-0 Monocryl and a subcuticular 3-0 Stratafix augmented with Prineo and then Dermabond. An Aquacel dressing was applied. The patient was then placed into a sling, transferred to the bed and taken to the recovery room in satisfactory condition having tolerated the procedure well.
[2024-04-04] MEDS ORDERED: NON-FORMULARY ITEM (Pravastatin Sodium [Pravastatin Sodium] 40 MG Tablet) PO SCH (10:00)
[2024-04-04] MEDS ORDERED: NON-FORMULARY ITEM (Multivitamin [Daily Multivitamin] 1 EACH Tablet) PO SCH (10:00)
[2024-04-04] MEDS ORDERED: VITAMIN D2 PO SCH (10:00)
== END 2024-04-04 11:45 | disposition home or self-care (01) ==
LOC: SDC 06:09 → MED SURG 12:30 → SDC 04-04 11:45
PROVIDERS: ATTEND Orthopaedic Surgery
DX: M75.121 Complete rotator cuff tear or rupture of right shoulder, not specified as traumatic (principal); E11.9 Type 2 diabetes mellitus without complications
CPT/HCPCS: 01638; 23472; 36415; 64415; 73030; 76937; 76942; 82947; 85027; 97110; 97165; 97535; 99100; C1713; C1776; J0690; J1171; J1885; J2250; J2371; J2405; J2704; J3010; J3370; A9270-GY